=== PATIENT | female | born 1970 | race Caucasian/White ===

== ENCOUNTER 2017-01-13 00:19 | Emergency (ER) | payer OTHER ==
[~2017-01-13] VITALS: Ht 167.6 cm; Wt 59.0 kg
--- NOTE | 2017-01-13 00:30 | NUR ---
PT BIB SON WITH A C/O NUMBNESS AND TINGLING ON LT SIDE OF FACE. C/O HEADACHE LT SIDE OF HEAD RADIATING TO LEFT EYE. PT IS HAVING DIFFICULTY GETTING WORDS OUT, SPEECH IS SLOW. PT ABLE TO AMBULATE WITH A STEADY GAIT. VSS. PT IS ON THE MONITOR AND CONTINUOUS PULSE OX.
--- NOTE | 2017-01-13 01:00 | NUR ---
DR. ESQUEDA IS AT THE BEDSIDE.
[2017-01-13] MEDS ORDERED: LORAZEPAM INJ 2 MG/ML VIAL ONE (01:30)
[2017-01-13] MEDS ORDERED: LORAZEPAM INJ 2 MG/ML VIAL IV ONE (01:30)
[2017-01-13 01:37] LABS: BASOPHILS # (AUTO) 0.1 /CMM (0.0-0.2); BASOPHILS % (AUTO) 0.5 % (0.0-2.0); EOSINOPHILS # (AUTO) 0.1 /CMM (0.0-0.7); EOSINOPHILS % (AUTO) 1.1 % (0.0-6.0); HEMATOCRIT 43 % (33-45); HEMOGLOBIN 14.8 g/dL (11.5-14.8); LYMPHOCYTES # (AUTO) 1.6 /CMM (0.8-4.8); LYMPHOCYTES % (AUTO) 15.9 % (20.0-44.0); MEAN CORPUSCULAR HEMOGLOBIN 32 PG (26.0-33.0); MEAN CORPUSCULAR HGB CONC 35 g/dl (31.0-36.0); MEAN CORPUSCULAR VOLUME 92 fL (82-100); MONOCYTES # (AUTO) 0.3 /CMM (0.1-1.30); MONOCYTES % (AUTO) 3.5 % (2.0-12.0); NEUTROPHILS # (AUTO) 7.9 /CMM (1.8-8.9); PLATELET COUNT (AUTO) 259 /CMM (150-450); RDW COEFFICIENT OF VARIATION 12.9 (11.5-15.0); RED BLOOD CELL COUNT(AUTO) 4.67 MIL/uL (4.0-5.2); WHITE BLOOD COUNT (AUTO) 9.9 K/uL (4.3-11.0)
--- NOTE | 2017-01-13 01:38 | NUR ---
PT IS GOING TO [facility].
[2017-01-13 01:41] LABS: APPEARANCE,URINE CLEAR (CLEAR); BILIRUBIN,URINE NEGATIVE (NEGATIVE); BLOOD, URINE NEGATIVE Ery/uL (NEGATIVE); COLOR,URINE YELLOW (YELLOW); KETONES,URINE NEGATIVE (NEGATIVE); LEUKOCYTE ESTERASE ,URINE NEGATIVE (NEGATIVE); NITRITE, URINE NEGATIVE (NEGATIVE); PROTEIN,URINE NEGATIVE (NEGATIVE); UGLUCOSE NEGATIVE (NEGATIVE); UROBILINOGEN,URINE 0.2 EU/dL (0.2)
[2017-01-13 01:46] LABS: CALCIUM, SERUM 9.7 mg/dL (8.5-10.1); CARBON DIOXIDE 33 mmol/L (21-32); CHLORIDE 102 mmol/L (98-107); CREATININE 0.8 mg/dL (0.6-1.3); GLUCOSE 140 mg/dL (74-106); POTASSIUM 4.4 mmol/L (3.5-5.1); SODIUM SERUM 140 mmol/L (136-145); UREA NITROGEN, BLOOD 13 mg/dL (7-18)
[2017-01-13 01:54] LABS: INR 0.95 (0.87-1.13); PROTHROMBIN TIME 10.1 SECS (9.5-12.7); TROPONIN I < 0.017 ng/mL (0.00-0.056)
--- NOTE | 2017-01-13 02:18 | NUR ---
PT RETURNED FROM CT.
--- NOTE | 2017-01-13 02:20 | NUR ---
PT STATED THAT SHE IS FEELING BETTER. PT'S SPEECH IS CLEAR.
--- NOTE | 2017-01-13 02:30 | NUR ---
PT IS DRINKING JUICE AND TOLERATING PO WELL. RESP EVEN AND UNLABORED. VSS
--- NOTE | 2017-01-13 03:10 | NUR ---
DR ESQUEDA IS AT THE BEDSIDE SPEAKING TO THE PT AND EXAMINING THE PT'S EAR.
--- NOTE | 2017-01-13 03:43 | NUR ---
IV removed. Catheter intact and site benign. Pressure and 4x4 applied to site. No bleeding noted.Patient discharged to home in stable condition. Written and verbal after care instructions given. Patient verbalizes understanding of instruction. PT'S SON IS DRIVING PT HOME. VSS.
[2017-01-13 03:49] VITALS: BP 119/62
== END 2017-01-13 03:50 | disposition home or self-care (01) ==
LOC: ER 00:24
DX: F41.9 Anxiety disorder, unspecified (principal); E03.9 Hypothyroidism, unspecified
CPT/HCPCS: 36415; 70450; 80048; 80305; 81001; 84484; 85025; 85730; 93005; 96374; 99285; A4606; J2060; Z7610; 81000-TC

== ENCOUNTER 2024-10-21 03:23 | Emergency (ER) | payer OTHER, BC ==
[~2024-10-21] VITALS: Ht 167.6 cm; Wt 61.2 kg
[2024-10-21 04:39] LABS: BASOPHILS % (AUTO) 0.4 % (0.0-2.0); EOSINOPHILS # (AUTO) 0.1 K/uL (0.0-0.7); EOSINOPHILS % (AUTO) 1.7 % (0.0-6.0); HEMATOCRIT 35 % (33-45); HEMOGLOBIN 12.2 g/dL (11.5-14.8); LYMPHOCYTES # (AUTO) 1.1 K/uL (0.8-4.8); MEAN CORPUSCULAR HEMOGLOBIN 32 PG (26.0-33.0); MEAN CORPUSCULAR HGB CONC 35 g/dl (31.0-36.0); MEAN CORPUSCULAR VOLUME 91 fL (82-100); MONOCYTES # (AUTO) 0.5 K/uL (0.1-1.30); MONOCYTES % (AUTO) 8.4 % (2.0-12.0); NEUTROPHILS # (AUTO) 3.9 K/uL (1.8-8.9); NEUTROPHILS % (AUTO) 69.5 % (43.0-81.0); PLATELET COUNT (AUTO) 189 K/uL (150-450); RED BLOOD CELL COUNT(AUTO) 3.84 MIL/uL (4.0-5.2); RED CELL DISTRIBUTION WIDTH 12.6 % (11.5-15.0); WHITE BLOOD COUNT (AUTO) 5.7 K/uL (4.3-11.0)
[2024-10-21 04:48] LABS: CALCIUM, SERUM 9.4 mg/dL (8.5-10.1); CARBON DIOXIDE 26 mmol/L (21-32); CHLORIDE 106 mmol/L (98-107); CREATININE 1.2 mg/dL (0.6-1.3); GLUCOSE 138 mg/dL (74-106); POTASSIUM 3.6 mmol/L (3.5-5.1); SODIUM SERUM 143 mmol/L (136-145); UREA NITROGEN, BLOOD 16 mg/dL (7-18)
[2024-10-21 04:50] LABS: ALCOHOL, BLOOD < 3 mg/dL (0-10)
[2024-10-21] MEDS ORDERED: KETOROLAC TROMETHAMINE INJ 30 MG/ML VIAL ONE (05:21)
[2024-10-21] MEDS ORDERED: ACETAMINOPHEN ES 500 MG TABLET ONE (05:21)
[2024-10-21] MEDS: KETOROLAC TROMETHAMINE INJ 30 MG/ML VIAL IV ONE (05:23)
[2024-10-21] MEDS: ACETAMINOPHEN ES 500 MG TABLET PO ONE (05:29)
[2024-10-21] MEDS ORDERED: IBUPROFEN 600 MG TABLET PO ONE (05:30)
[2024-10-21 06:51] LABS: AMPHETAMINE, URINE NEGATIVE (NEGATIVE); BARBITURATE, URINE NEGATIVE (NEGATIVE); BENZODIAZEPINE, URINE NEGATIVE (NEGATIVE); CANNABINOID, URINE POSITIVE (NEGATIVE); COCCAINE, URINE NEGATIVE (NEGATIVE); OPIATE, URINE NEGATIVE (NEGATIVE); PHENCYCLIDINE SCREEN,URINE NEGATIVE (NEGATIVE)
[2024-10-21] MEDS ORDERED: CEPH-570 PO (06:53)
[2024-10-21 07:07] VITALS: BP 108/60; TEMP 98.5; O2SAT 100
== END 2024-10-21 07:07 | disposition home or self-care (01) ==
LOC: EDUNIT# 03:23 → ER 03:34
DX: S00.93XA Contusion of unspecified part of head, initial encounter (principal); S50.01XA Contusion of right elbow, initial encounter; E03.9 Hypothyroidism, unspecified; Z85.3 Personal history of malignant neoplasm of breast; X58.XXXA Exposure to other specified factors, initial encounter; Y93.89 Activity, other specified; Y92.410 Unspecified street and highway as the place of occurrence of the external cause; Y99.8 Other external cause status
CPT/HCPCS: 99285; 96374; 93005; 73080; 73130 ×2; 70450; 85025; 80048; 87086; 36415; 84443; 80320; 80307; J1885; G0480